=== PATIENT | female | born 1975 | race Caucasian/White ===

== ENCOUNTER 2022-01-28 14:24 | Emergency (ER) | payer SELFPAY ==
[~2022-01-28] VITALS: Ht 175.3 cm; Wt 84.0 kg
[2022-01-28] MEDS ORDERED: TETANUS-DIPTH-ACEL PERTUSSIS 0.5ML SYR Tdap IM ONE (15:15)
[2022-01-28] MEDS ORDERED: LIDOCAINE 1% HCL (LOCAL ANESTH.) INJ 20ML MDV ONE (15:32)
[2022-01-28 15:34] VITALS: BP 106/69
[2022-01-28] MEDS ORDERED: LIDOCAINE 1% HCL (LOCAL ANESTH.) INJ 20ML MDV IJ ONE (15:45)
[2022-01-28] MEDS ORDERED: AMOX-277 PO (15:56)
[2022-01-28] MEDS ORDERED: NAPR500T31 PO (15:56)
[2022-01-28] MEDS ORDERED: SULF400T11 PO (15:56)
== END 2022-01-28 16:17 | disposition home or self-care (01) ==
LOC: ER 14:24
DX: S81.811A Laceration without foreign body, right lower leg, initial encounter (principal); S81.851A Open bite, right lower leg, initial encounter; Z76.0 Encounter for issue of repeat prescription; F17.210 Nicotine dependence, cigarettes, uncomplicated; Z79.2 Long term (current) use of antibiotics; Z79.899 Other long term (current) drug therapy; Z91.018 Allergy to other foods; W54.0XXA Bitten by dog, initial encounter; Y93.89 Activity, other specified; Y92.89 Other specified places as the place of occurrence of the external cause; Y99.8 Other external cause status
CPT/HCPCS: 12004; 90471; 90715; 99283; J2001